=== PATIENT | female | born 2000 | race Caucasian/White ===

== ENCOUNTER 2018-11-01 09:24 | Emergency (ER) | payer OTHER ==
[2018-11-01 09:47] VITALS: BP 113/73
--- NOTE | 2018-11-01 10:19 | UC ---
Lower Extremity/Ankle HPI - HPI Summary HPI Summary: left leg/ groin pain x 1 day woke up this morning with pain in her left groin area, radiating to her left thigh / leg pain is 6 out of 10 , worse with moving her left leg / getter with rest no known injury no n/v/d/c, no dysuria, no vaginal discharge, - History of Current Complaint Chief Complaint: UCLowerExtremity Stated Complaint: LT GROIN/LT LEG PAIN Time Seen by Provider: 11/01/18 09:51 Hx Obtained From: Patient Hx Last Menstrual Period: 10/28/18 Onset/Duration: Gradual Onset, Lasting Days - 1, Still Present Severity Initially: Moderate Severity Currently: Moderate Pain Intensity: 3 Pain Scale Used: 0-10 Numeric Aggravating Factor(s): Standing, Ambulation Alleviating Factor(s): Rest Able to Bear Weight: Yes - Allergies/Home Medications Allergies/Adverse Reactions: Allergies Allergy/AdvReac Type Severity Reaction Status Date / Time Penicillins Allergy Anaphylatic Verified 11/01/18 09:47 Shock Home Medications: Home Medications Sertraline HCl [Zoloft] 50 mg PO DAILY 11/01/18 [History Confirmed 11/01/18] PMH/Surg Hx/FS Hx/Imm Hx Previously Healthy: Yes - Surgical History Surgical History: None - Family History Known Family History: Negative: Diabetes - Social History Alcohol Use: None Substance Use Type: None Smoking Status (MU): Never Smoked Tobacco Review of Systems All Other Systems Reviewed And Are Negative: Yes Constitutional: Positive: Negative Skin: Positive: Negative Eyes: Positive: Negative ENT: Positive: Negative Respiratory: Positive: Negative Cardiovascular: Positive: Negative Genitourinary: Positive: Negative Motor: Positive: Negative Neurovascular: Positive: Negative Musculoskeletal: Positive: Other: - left leg/ groin : tendernss, upper thigh, pain with hip flexion, no swelling, no erythema, no rash or skin lesion , no erythema , no swelling Physical Exam Vital Signs: Initial Vital Signs Temp 99.0 F 11/01/18 09:42 Pulse 70 11/01/18 09:42 Resp 16 11/01/18 09:42 BP 113/73 11/01/18 09:42 Pulse Ox 100 11/01/18 09:42 Lower Extremity Course/Dx - Differential Dx/Diagnosis Provider Diagnosis: Left groin pain Discharge - Sign-Out/Discharge Documenting (check all that apply): Patient Departure All imaging exams completed and their final reports reviewed: No Studies - Discharge Plan Condition: Stable Disposition: HOME Prescriptions: Naproxen [Naproxen 500 mg tab] 500 mg PO BID WITH MEALS #20 tablet. Patient Education Materials: Groin Strain (ED) Referrals: Non Staff,Doctor [Primary Care Provider] - 5 Days - Billing Disposition and Condition Condition: STABLE Disposition: Home
== END 2018-11-01 10:07 | disposition home or self-care (01) ==
LOC: UCCORT 09:24
DX: R10.32 Left lower quadrant pain (principal); M79.652 Pain in left thigh; Z88.0 Allergy status to penicillin
CPT/HCPCS: 99202; G0463